=== PATIENT | male | born 1970 | race Caucasian/White ===

== ENCOUNTER 2020-02-18 11:00 | Emergency (ER) | payer OTHER ==
[~2020-02-18] VITALS: Ht 180.3 cm; Wt 105.7 kg
--- NOTE | 2020-02-18 11:23 | NUR ---
BIB AND [employer] FROM CUSTODIAL TO ER BED 12. AAOX4. NOT IN RESP DISTRESS. BREATHING EVEN AND UNLABORED. BROUGHT IN FOR MID STERNAL CHEST PAIN NON RADIATING DULL IN SENSATION THEN WILL GET SHARP. MD AT BEDSIDE FOR EVAL. ORDERS RECEIVED NOTED AND CARREID OUT. PT IS ON BILAT HAND CUFFS, 2 [employer] OFFICER AT BEDSIDE.
--- NOTE | 2020-02-18 11:24 | NUR ---
TECH AT BEDSIDE FOR EKG
--- NOTE | 2020-02-18 11:33 | NUR ---
WEIGHT ANALYST AT BEDSIDE
[2020-02-18 11:40] LABS: BASOPHILS # (AUTO) 0.1 /CMM (0.0-0.2); BASOPHILS % (AUTO) 0.7 % (0.0-2.0); EOSINOPHILS % (AUTO) 0.7 % (0.0-6.0); HEMATOCRIT 48 % (39-51); LYMPHOCYTES # (AUTO) 1.1 /CMM (0.8-4.8); LYMPHOCYTES % (AUTO) 12.9 % (20.0-44.0); MEAN CORPUSCULAR HGB CONC 34 g/dl (31.0-36.0); MEAN CORPUSCULAR VOLUME 95 fL (80-96); MONOCYTES # (AUTO) 0.9 /CMM (0.1-1.30); MONOCYTES % (AUTO) 10.6 % (2.0-12.0); NEUTROPHILS # (AUTO) 6.5 /CMM (1.8-8.9); NEUTROPHILS % (AUTO) 75.1 % (43.0-81.0); PLATELET COUNT (AUTO) 249 /CMM (150-450); RED BLOOD CELL COUNT(AUTO) 5.03 MIL/uL (4.5-6.0); WHITE BLOOD COUNT (AUTO) 8.7 K/uL (4.3-11.0)
[2020-02-18 11:52] LABS: CALCIUM, SERUM 8.5 mg/dL (8.5-10.1); CARBON DIOXIDE 26 mmol/L (21-32); CHLORIDE 103 mmol/L (98-107); CREATININE 0.9 mg/dL (0.6-1.3); GLUCOSE 133 mg/dL (74-106); POTASSIUM 3.7 mmol/L (3.5-5.1); SODIUM SERUM 137 mmol/L (136-145); UREA NITROGEN, BLOOD 12 mg/dL (7-18)
--- NOTE | 2020-02-18 13:09 | NUR ---
PT IS MEDICALLY CLEARED FOR INCARCERATION. PT IS RELEASED UNDER THE CARE FO MACIEJ. PT IS AMBULATORY ON STEADY GAIT. PT IS IN STABLE CONDITION.
[2020-02-18 13:10] VITALS: BP 126/83
== END 2020-02-18 13:10 ==
LOC: ER 11:04
DX: R07.89 Other chest pain (principal); F31.9 Bipolar disorder, unspecified; F20.9 Schizophrenia, unspecified
CPT/HCPCS: 36415; 71045-TC; 80048-TC; 84484-TC; 85025-TC